=== PATIENT | male | born 1945 | race Caucasian/White ===

== ENCOUNTER 2016-10-02 08:25 | Emergency (ER) | payer MEDICARE, OTHER ==
[2016-10-02 09:09] LABS: BASOPHILS 0.2 % (0.0-2.0); EOSINOPHILS 0.9 % (0-7); HEMATOCRIT 45.9 % (42.0-54.0); HEMOGLOBIN 15.4 g/dL (13.5-17.5); IMMATURE GRANULOCYTES 0.2 % (0-5); LYMPHOCYTES 10.7 % (15-50); MCH 30.3 pg (26.0-34.0); MCHC 33.6 g/dL (31.0-37.0); MCV 90.2 fL (80.0-100.0); MEAN PLATELET VOLUME 10.4 fL (7.4-10.4); MONOCYTES 8.8 % (2-11); NEUTROPHILS 79.2 % (40-80); PLATELET COUNT 148 10x3/uL (130-400); RBC 5.09 10x6/uL (4.20-6.10); RDW 12.4 % (11.5-14.5); WBC 9.2 10x3/uL (4.8-10.8)
[2016-10-02 09:29] LABS: ALBUMIN 3.4 g/dL (3.4-5.0); ALKALINE PHOSPHATASE 66 U/L (46-116); ALT (SGPT) 29 U/L (10-68); CALC OSMOLALITY 284 mosm/kg (275-300); CALCIUM 9.1 mg/dL (8.5-10.1); CHLORIDE - SERUM 103 mmol/L (98-107); GLUCOSE 92 mg/dL (74-106); POTASSIUM - SERUM 3.4 mmol/L (3.5-5.1); PROTEIN - SERUM 7.2 g/dL (6.4-8.2); SODIUM 143 mmol/L (136-145); UREA NITROGEN 13 mg/dL (7-18); eGFR NON AFRICAN AMERICAN 78 mL/min (90-120)
== END 2016-10-02 10:14 | disposition home or self-care (01) ==
LOC: D.ER 08:25
PROVIDERS: Emergency Medicine
DX: E11.649 Type 2 diabetes mellitus with hypoglycemia without coma (principal); Z79.4 Long term (current) use of insulin

== ENCOUNTER 2016-12-19 11:06 | Outpatient (CLI) | payer MEDICARE, OTHER ==
[~2016-12-19] VITALS: Ht 182.9 cm; Wt 110.0 kg
--- NOTE | ~2016-12-19 | HEMODYNAMI ---
PATIENT:ADIEL RAWLS MEDICAL RECORD: [id number] : 47 LOCATION:[facility] ADMISSION DATE: 12/19/16 Generatedon:12/19/201613:41 Patient name: ADIEL RAWLS Patient #: [id number] SSN: : 1945 Date of study: 12/19/2016 Page: Of Hemodynamic Procedure Report Patient Data Patient Demographics Procedure consent was obtained First Name: ADIEL Gender: Male Last Name: CURLY : 1945 Middle Initial: T Age: 71 year(s) Patient #: [id number] Race: Unknown Additional ID: [id number] Contact details Address: [address] [place] [address] State: [place] City: [place] Zip code: [address] Past Medical History Allergies Allergen Reaction Date Comments Reported Other allergy 12/19/2016 demerol, hydrocodone Admission Admission Data Admission Date: 12/19/2016 Admission Time: 11:06 Lab Results Lab Result Date: 12/19/2016 Lab Result Time: 0:00 Biochemistry Name Units Result Min Max BUN mg/dl 16 --(---*)-- 7 18 Creatinine mg/dl 1.1 --(--*-)-- 0.6 1.3 CBC Name Units Result Min Max Hemoglobin g/dl 44.5 --(----)-* 13.5 17.5 Procedure Procedure Types Cath Procedure Diagnostic Procedure C [facility] w/Coronaries Miscellaneous Procedures Moderate Sedation up to 30 minutes Procedure Description Procedure Date Procedure Date: 12/19/2016 Procedure Start Time: 13:25 Procedure End Time: 13:38 Procedure Staff Name Function Henri Schwartz MD Performing Physician Leah Motta RT Scrub Faith Low RN Nurse Laura Craig RT Monitor Indication Abnormal stress perfusion Procedure Data Cath Procedure Fluoroscopy Diagnostic fluoroscopy Total fluoroscopy Time: 1.7 time: 1.7 min min Diagnostic fluoroscopy Total fluoroscopy dose: 953 dose: 953 mGy mGy Contrast Material Contrast Material Type Amount (ml) Isovue 300 84 Entry Location Entry Primary Successful Side Size Upsize Upsize Entry Closure [place] ccessful Closure Location (Fr) 1 (Fr) 2 (Fr) Remarks Device Remarks Radial Right 6 Fr Mechanical artery Short Compression Estimated blood loss: 5 ml Diagnostic catheters Device Type Used For End Catheter Placement Terumo Optitorque 5Fr Multi-vessel [place] 4.5 catheter Angiography Procedure Medications Medication Administration Route Dosage Oxygen NC 2 l/min Lidocaine 2% added to field 20 Heparin Flush Bag added to field 2 bags (1000units/500ml NS) 0.9% NaCl I.V. 100 ml/hr Zofran I.V. 4 mg Versed I.V. 1 mg Fentanyl I.V. 50 mcg Radial Cocktail I.A. 1 syringe (Verapomil 2mg/Nitro 400mcg/Heparin 1500units) Versed I.V. 0.5 mg Fentanyl I.V. 25 mcg Hemodynamics Rest HGB: 44.5 (g/dl) Heart Rate: 64 (bpm) Pressure Samples Time Site Value (mmHg) Purpose Heart Use Rate(bpm) 13:29 LV 78/5,8 Snapshot 73 13:29 AO 89/57(71) Pullback 74 13:29 LV 96/7,9 Pullback 74 Gradients Valve Time Site 1 Site 2 Mean SEP/DFP Peak To Heart Use (mmHg) (sec/min) Peak Rate (mmHg) (bpm) Aortic 13:29 LV AO 4 13 7 74 96/7,9 89/57(71) Calculations Valve P-P Mean Valve Index Valve Source Name Gradient Area Flow (cm2) Aortic 7 4 7 4 Snapshots Pre Cath Intra NCS Post Cath Vital Signs Time Heart Resp SPO2 NIBP (mmHg) Rhythm Pain Sedation Rate (ipm) (%) Status Level (bpm) 13:00:45 94 18 100 163/92(117) NSR 0 (11) 10(A) , No pain 13:05:07 62 16 100 155/88(109) NSR 0 (11) 10(A) , No pain 13:09:23 65 16 100 156/94(114) NSR 0 (11) 10(A) , No pain 13:13:35 71 20 98 139/85(100) NSR 0 (11) 10(A) , No pain 13:17:45 71 16 99 153/92(109) NSR 0 (11) 10(A) , No pain 13:22:01 69 21 98 145/86(106) NSR 0 (11) 10(A) , No pain 13:26:20 69 17 98 140/81(105) NSR 0 (11) 10(A) , No pain 13:30:38 73 11 100 119/68(91) NSR 0 (11) 9(A) , No pain 13:34:47 71 17 99 130/70(103) NSR 0 (11) 9(A) , No pain 13:38:59 71 15 96 130/73(91) NSR 0 (11) 10(A) , No pain Medications Time Medication Route Dose Verified Delivered Reason Notes Effectiveness by by 13:07:11 Oxygen NC 2 l/min Henri Cuevas used for [facility]. Bipin Low RN procedure 13:07:18 Lidocaine 2% added 20ml Henri Álvarez for local to vial [facility] anesthetic field MD KENNY 13:07:24 Heparin Flush added 2 bags Henri Álvarez used for Bag to [facility] procedure (1000units/500ml field MD KENNY NS) 13:07:33 0.9% NaCl I.V. 100 Henri Cuevas Per ml/hr St. Bipin perez MD 13:07:41 Zofran I.V. 4 mg Henri Cuevas Per [facility] Bipin perez MD 13:26:12 Versed I.V. 1 mg Henri Cuevas for sedation St. Bipin Low RN, MD 13:26:19 Fentanyl I.V. 50 mcg Henri Cuevas for sedation St. Bipin Low RN, MD 13:28:30 Radial Cocktail I.A. 1 Henri Álvarez for (Verapomil syringe [facility] vasodilation 2mg/Nitro MD KENNY 400mcg/Heparin 1500units) 13:32:51 Versed I.V. 0.5 mg Henri Cuevas for sedation [facility]. Bipin Low RN, MD 13:32:57 Fentanyl I.V. 25 mcg Henri Cuevas for sedation St. Bipin Low RN, MD Procedure Log Time Note 12:42:02 Diagnostic Cath Status : Elective 12:43:55 Indication : Abnormal stress perfusion 12:44:22 Faith Low RN sent for patient. Start room use. 12:44:28 Time tracking: Regular hours 12:44:35 Plan of Care:Hemodynamics will remain stable., Cardiac rhythm will remain stable., Comfort level will be maintained., Respiratory function will remain adequate., Patient/ family verbilizes understanding of procedure., Procedure tolerated without complication., Recovers from procedure without complications.. 12:48:37 Lab Result : Creatinine 1.1 mg/dl 12:48:37 Lab Result : BUN 16 mg/dl 12:48:37 Lab Result : Hemoglobin 44.5 g/dl 12:55:28 Patient received from Pre/Post Procedure Room to CCL 2 Alert and oriented. Tansferred to table in Supine position. 12:55:35 Patient arrived from Pre/Post Procedure Room to CCL 2. Patient remains on bed/stretcher for procedure. 12:55:36 Warm blankets applied, and ramirez hugger turned on for patient comfort. 12:55:37 Correct patient and procedure confirmed by team. 12:55:40 Signed procedure consent form obtained from patient. 12:55:41 ECG and BP/O2 sat monitors applied to patient. 12:55:41 Vital chart was started 12:55:42 Baseline sample Acquired. 12:55:54 Rhythm: sinus rhythm 12:55:57 Full Disclosure recording started 13:07:11 Oxygen 2 l/min NC was administered by Faith Low RN; used for procedure; 13:07:18 Lidocaine 2% 20ml vial added to field was administered by Henri Schwartz MD; for local anesthetic; 13:07:19 Baseline sample Acquired. 13:07:24 Heparin Flush Bag (1000units/500ml NS) 2 bags added to field was administered by Henri Schwartz MD; used for procedure; 13:07:33 0.9% NaCl 100 ml/hr I.V. was administered by Faith Low RN; Per physician; 13:07:41 Zofran 4 mg I.V. was administered by Faith Low RN; Per physician; 13:07:46 H&P Date Dictated: 12/19/2016 New H&P dictated by physician.. 13:07:49 Pre-procedure instructions explained to patient. 13:07:50 Pre-op teaching completed and patient verbalized understanding. 13:07:55 Family in waiting room. 13:07:58 Patient NPO since Midnight. 13:08:27 Patient allergic to Other allergydemerol, hydrocodone 13:08:49 Is the patient allergic to Iodine/contrast media? No. 13:08:55 Is patient on blood thinner?No 13:09:03 Patient diabetic? Yes. 13:09:06 If diabetic: On Metformin? No 13:09:18 Previous problem with sedation/anesthesia? No ? 13:09:24 Previous problem with sedation/anesthesia? No ? 13:09:30 Snore? Yes 13:09:32 Sleep apnea? No 13:09:33 Deviated septum? No 13:09:35 Opens mouth fully? Yes 13:09:36 Sticks out tongue? Yes 13:09:40 Airway obstruction? No ? 13:09:45 Dentures? No ? 13:09:55 Pre procedure: right dorsailis pedis pulse 2+ Normal; easily identifiable; not easily obliterated 13:10:03 Modified Santos's test Radial > 7 seconds. 13:10:11 Patient pain scale 0/10 ?. 13:10:23 IV patent on arrival in left forearm with 0.9% NaCl at [facility]. 13:10:31 Lab results completed and on chart. 13:10:42 Right Radial & Right Groin area was prepped with chlora-prep and draped in sterile fashion 13:10:51 Alarms reviewed by R. N. 13:10:52 Sharps counted by scrub and verified by R.N. 13:24:30 Physician arrived 13:24:33 --------ALL STOP TIME OUT------ 13:24:35 Final Timeout: patient, procedure, and site verified with staff and physician. All members of the team are in agreement. 13:24:40 Right Radial site verified by team. 13:24:47 Physical assessment completed. ASA score P 2 - A patient with mild systemic disease as per Henri Schwartz MD. 13:24:55 Sedation plan: IV Moderate Sedation Versed, Fentanyl 13:25:28 Use device set Radial Dx 13:25:33 Acist Syringe opened to sterile field. 13:25:34 Medline Cath Pack opened to sterile field. 13:25:35 Bag Decanter opened to sterile field. 13:25:36 Terumo 6Fr Slender Glidesheath opened to sterile field. 13:25:36 St Cory 260cm J .035 wire opened to sterile field. 13:25:37 Acist Hand Control opened to sterile field. 13:25:39 Acist Manifold opened to sterile field. 13:25:39 Tegaderm 4 x 4 opened to sterile field. 13:25:40 MBrace Wrist Support opened to sterile field. 13:25:46 Procedure started. 13::57 Local anesthetic to right radial artery with Lidocaine 2% by Henri Schwartz MD.INITIAL ACCESS ONLY 13::12 Versed 1 mg I.V. was administered by Faith Low RN; for sedation; 13::19 Fentanyl 50 mcg I.V. was administered by Faith Low RN; for sedation; 13:27:16 A 6 Fr Short sheath was inserted into the Right Radial artery 13:28:11 A [employer] Optitorque 5Fr [place] 4.5 catheter was advanced over the wire and used for Multi-vessel Angiography. 13:28:30 Radial Cocktail (Verapomil 2mg/Nitro 400mcg/Heparin 1500units) 1 syringe I.A. was administered by Henri Schwartz MD; for vasodilation; :29:26 LV hemodynamics recorded. 13:29:48 EF : 55 % 13:30:00 LV gram done using LOUIS 13:30:11 LCA angiography performed. 13:32:51 Versed 0.5 mg I.V. was administered by Faith Low RN; for sedation; ::57 Fentanyl 25 mcg I.V. was administered by Faith Low RN; for sedation; 13:33:12 RCA angiography performed. 13:34:38 Catheter removed. 13:35:01 Terumo TR Band Standard opened to sterile field. 13:35:36 Sheath removed intact; hemostasis achieved with Mechanical Compression to the Right Radial artery. 13:35:42 Procedure ended.(Physican Out) 13:35:52 Fluoroscopy time 01.70 minutes. 13:36:00 Flurop Dose total: 953 13:36:00 Fluoroscopy dose: 953 mGy 13:36:17 Contrast amount:Isovue 300 84ml. 13:36:19 Sharps counted by scrub and verified by R.N. 13:36:45 TR band inflated with 10cc of air. 13:36:55 Insertion/operative site no bleeding no hematoma. 13:37:05 Post right radial artery:stable 13:37:13 Post procedure rhythm: unchanged. 13:37:17 Estimated blood loss: 5 ml 13:37:23 Post procedure instruction explained to patient.Patient verbalizes understanding. 13:38:05 Procedure type changed to Cath procedure, Diagnostic procedure, LHC, LHC w/Coronaries, Miscellaneous Procedures, Moderate Sedation up to 30 minutes 13:38:41 Procedure and supply charges have been captured, reviewed, submitted and are correct. 13:38:46 Vital chart was stopped 13:38:48 See physician's report for complete and final results. 13:38:52 Report given to Pre/Post Procedure Room. 13:38:55 Patient transfered to Pre/Post Procedure Room with Stretcher. 13:38:57 Procedure ended. 13:38:57 Full Disclosure recording stopped 13:39:07 End room use (Document Last) Device Usage Item Name Manufacture Quantity Catalog Hospital Part Current Minimal Lot# / Number Charge Number Stock Stock Serial# Code Acist Acist 1 62498 622305 642430 298123 20 Syringe [employer] Inc Medline Cardinal 1 [id number] 96604 022756 5 Cath Pack Health Bag Microtek 1 2001S 554458 37627 210000 5 [employer] Terumo 6Fr Terumo 1 [id number] 393619 414438 597436 [address] [facility] St Cory 1 927188 351301 127234 361711 30 260cm J .035 wire Acist Hand Acist 1 46171 802220 402389 514926 5 Control [employer] Inc Acist Acist 1 52545 681554 490011 601740 5 Manifold Medical [employer] Inc Tegaderm 4 3M 1 1626W 975156 759700 728080 5 x 4 MBrace Advanced 1 140-0250-00 030470 77164 975431 5 Wrist Vascular Support Dynamics Terumo Terumo 1 62-6156 672145 627876 012558 5 Optitorque 5Fr [place] 4.5 catheter Terumo TR Terumo 1 [id number] 466151 065908 909429 40 Band Standard Signature Audit [place] Stage Time Signature Unsigned Intra-Procedure 12/19/2016 Laura Craig 1:41:33 PM RT(R) Signatures Monitor : Laura Craig RT Signature : Date : Time : [address] [address]
[2016-12-19] MEDS ORDERED: GABAPENTIN100 MG PO (11:39)
[2016-12-19] MEDS ORDERED: FUROSEMIDE40 MG PO (11:39)
[2016-12-19] MEDS ORDERED: POTASSIUM99 M1 PO (11:40)
[2016-12-19] MEDS ORDERED: NOVOLIN N100 U/ML SQ (11:40)
[2016-12-19] MEDS ORDERED: NOVOLIN R100 U/ML SQ (11:41)
[2016-12-19 11:50] VITALS: BP 144/80; Ht 182.9 cm; Wt 110.0 kg
[2016-12-19 11:56] LABS: BASOPHILS 0.3 % (0-2); EOSINOPHILS 4.1 % (0-7); HEMATOCRIT 44.5 % (42.0-54.0); HEMOGLOBIN 15.2 g/dL (13.5-17.5); IMMATURE GRANULOCYTES 0.1 % (0-5); LYMPHOCYTES 16.5 % (15-50); MCH 30.5 pg (26.0-34.0); MCHC 34.2 g/dL (31.0-37.0); MCV 89.4 fL (80.0-100.0); PLATELET COUNT 159 10x3/uL (130-400); RBC 4.98 10x6/uL (4.20-6.10); RDW 12.5 % (11.5-14.5); WBC 7.2 10x3/uL (4.8-10.8)
[2016-12-19 12:09] LABS: ANION GAP 9.8 mmol/L (8-16); CALCIUM 9.5 mg/dL (8.5-10.1); CARBON DIOXIDE 33.5 mmol/L (21.0-32.0); CREATININE - SERUM 1.1 mg/dL (0.6-1.3); POTASSIUM - SERUM 4.3 mmol/L (3.5-5.1)
--- NOTE | 2016-12-19 13:50 | NUR ---
1350 RECIEVED BACK TO ROOM VIA STRETCHER WITH TR BAND TO R/WRIST CDI NO BLEEDING NO HEMATOMA NOTED. FAMILY AT SIDE WITH DR HAGER PRESENT. CHEST PAIN IS DENIED VSS WITH NEEDS PROVIDED TO ROOM 1315 SITTING WITH HOB UP 30 DEGREES VSS WITH CHEST PAIN DENIED TR BAND REMAINS TO R/WRIST CDI NO BLEEDING NO HEMATOMA NOTED
--- NOTE | 2016-12-19 14:55 | NUR ---
VSS WITH NO C/O OF PAIN 2 CC AIR REMOVED FROM TR BAND WITH NO BLEEDING NOTED
--- NOTE | 2016-12-19 15:34 | NUR ---
PIV REMOVED FROM LEFT ARM WITH DRESSING APPLIED. VSS WITH CHEST PAIN DENIED TR BAND REMAINS CDI PATIENT UP TO GET DRESSED FOR DISCHARGE HOME
--- NOTE | 2016-12-21 12:52 | OP ---
PATIENT NAME: ADIEL RAWLS MEDICAL RECORD: [id number] :47 LOCATION:D.CAT ADMISSION DATE: SURGEON: SREE HAGER MD DATE OF OPERATION: 12/19/2016 PROCEDURES: Left heart catheterization, selective coronary angiography, right radial artery approach. CATHETERS: A 5-Kyrgyz sheath, [place] catheter. The procedure was well tolerated and the patient was returned to ba, sheath removed and a TR band was placed. FINDINGS: Left ventriculography in 30-degree LOUIS view: Normal wall motion and normal systolic function. CORONARY ANATOMY: Left main: Left main is free of disease. LAD: Has ____ irregularities, otherwise free of disease. CIRCUMFLEX: Large circumflex system, codominant, free of disease. RIGHT CORONARY ARTERY: Again, codominant and free of disease. IMPRESSION: No significant atherosclerotic disease, normal left ventricular systolic function. TRANSINT:[id number] Voice Confirmation ID: [id number] DOCUMENT ID: [id number] SREE HAGER MD at 1252 CC: [id number] DICTATION DATE: 12/19/16 1338 BOAT GARNISHER: 12/19/16 2322 DEP CLI 12/19/16 [facility] [address] [place] [address]
--- NOTE | 2016-12-21 12:52 | HP ---
PATIENT: ADIEL RAWLS MEDICAL RECORD: [id number] ACCOUNT: [id number] LOCATION:[facility] : 47 ADMISSION DATE: 12/19/16 HISTORY AND PHYSICAL EXAMINATION HISTORY OF PRESENT ILLNESS: A 71-year-old gentleman with a history of hypertension. He has a history of diabetes mellitus, seen at the office with angina, underwent Cardiolite stress test, which showed reversible ischemia along the inferior wall, normal LV function, who is being admitted for diagnostic angiography. PHYSICAL EXAMINATION: GENERAL: Pleasant gentleman, in no acute distress. HEENT: Normocephalic and atraumatic. NECK: No JVD or bruit. HEART: Regular. LUNGS: [place] are clear. ABDOMEN: Soft and nontender. EXTREMITIES: Pulse 2+. No edema. IMPRESSION: Angina with positive for noninvasive study. PLAN: For diagnostic angiography. TRANSINT:[id number] Voice Confirmation ID: [id number] DOCUMENT ID: [id number] SREE HAGER MD at 1252 CC: [id number] DICTATION DATE: 12/19/16 1321 INK TECHNICIAN: 12/19/162105 DEP CLI 12/19/16 [facility] [address] [place] [address]
== END 2016-12-19 16:05 | disposition home or self-care (01) ==
LOC: D.CATH 11:06
PROVIDERS: Internal Medicine Interventional Cardiology
DX: I20.9 Angina pectoris, unspecified (principal); I10 Essential (primary) hypertension; E11.9 Type 2 diabetes mellitus without complications

== ENCOUNTER → 2017-01-17 09:47 | Outpatient (CLI) | payer MEDICARE, OTHER ==
[2016-12-19 11:50] VITALS: BMI 32.9
[~2017-01-17 09:47] MED LIST: FUROSEMIDE40 MG PO; GABAPENTIN100 MG PO; NOVOLIN N100 U/ML SQ; NOVOLIN R100 U/ML SQ; POTASSIUM99 M1 PO
== END | disposition home or self-care (01) ==
LOC: D.CT 09:47 → D.RT 11:00
DX: R91.8 Other nonspecific abnormal finding of lung field (principal)

== ENCOUNTER → 2018-02-22 08:35 | Outpatient (CLI) | payer MEDICARE, OTHER ==
[2016-12-19 11:50] VITALS: BMI 32.9
--- NOTE | ~2018-02-22 | HEMODYNAMI ---
PATIENT:ADIEL RAWLS MEDICAL RECORD: [id number] : 47 LOCATION:[facility] ADMISSION DATE: 02/22/18 Generatedon:02/22/20189:33 Patient name: ADIEL RAWLS Patient #: [id number] SSN: : 1945 Date of study: 02/22/2018 Page: Of Hemodynamic Procedure Report Patient Data Patient Demographics Procedure consent was obtained First Name: ADIEL Gender: Male Last Name: CURLY : 1945 Middle Initial: T Age: 72 year(s) Patient #: [id number] Race: Unknown Additional ID: [id number] Contact details Address: [address] [place] [address] State: [place] City: [place] Zip code: [address] Past Medical History Allergies Allergen Reaction Date Comments Reported Other allergy 12/19/2016 demerol, hydrocodone Other allergy 02/22/2018 Other allergy 02/22/2018 hydrocodone Admission Admission Data Admission Date: 02/22/2018 Admission Time: 8:35 Procedure Procedure Types Cath Procedure Peripheral Cath Diagnostic Procedure Miscellaneous Procedure Description Procedure Date Procedure Date: 02/22/2018 Procedure Start Time: 9:23 Procedure Staff Name Function Adiel Finch MD Performing Physician Roshan Lee RT Monitor Daisy Flores RN Nurse Hemodynamics Rest Pre Cath Intra NCS Post Cath Procedure Log Time Note 9:13:51 Roshan Lee RT (R) (CV) sent for patient. Start room use. 9:14:16 Patient received from Outpatients to IR Alert and oriented. Tansferred to table in Supine position. 9:14:18 Correct patient and procedure confirmed by team. 9:14:21 Signed procedure consent form obtained from patient. 9:14:56 Patient allergic to Other allergy 9:15:13 Patient allergic to Other allergyhydrocodone 9:15:36 pt.states not taken blood thinners 9:15:44 Pre-procedure instructions explained to patient. 9:15:46 Pre-op teaching completed and patient verbalized understanding. 9:15:59 Left groin area was prepped with betadine and draped in sterile fashion 9:22:12 Physician arrived 9:22:13 --------ALL STOP TIME OUT------ 9:22:15 Final Timeout: patient, procedure, and site verified with staff and physician. All members of the team are in agreement. 9:22:19 Left groin site verified by team. 9:22:25 Sedation plan: Local Anesthetic Medication:Lidocaine 9::33 Full Disclosure recording started 9:23:33 Procedure started. 9:23:38 Local anesthetic to left femerol artery with Lidocaine 1% by Adiel Finch MD.INITIAL ACCESS ONLY 9:31:33 Procedure ended.(Physican Out) 9:31:56 verbal instructions given by 9:32:17 Bandaide applied 9:32:40 pt.removed from table and sent home pt.tolerated procedure fine Signature Audit [place] Stage Time Signature Unsigned Intra-Procedure 02/22/2018 Roshan 9:33:28 AM Rosa RT (R) (CV) Signatures Monitor : Roshan Signature : Rosa RT Date : Time : [facility] [address] [place] [address]
== END | disposition home or self-care (01) ==
LOC: D.SP 08:35 → D.RAD 13:00
DX: M16.12 Unilateral primary osteoarthritis, left hip (principal); Z01.812 Encounter for preprocedural laboratory examination